=== PATIENT | male | born 1985 | race Two or more races ===

== ENCOUNTER 2022-02-02 19:16 | Emergency (ER) | payer BC ==
[2022-02-02] MEDS ORDERED: PENICILLIN V POTASSIUM 250 MG TAB PO STA (21:04)
--- NOTE | 2022-02-02 21:09 | ED ---
ENT HPI - General Chief complaint: Dental/Oral Stated complaint: Tooth Pain Time Seen by Provider: 02/02/22 20:55 Source: patient, RN notes reviewed Mode of arrival: ambulatory - History of Present Illness Initial comments: This is a pleasant 36-year-old male who presents complaining of a dental abscess in his right upper molar area which developed last night. Patient states she is getting some drainage from the area. He denies any fever or chills. No difficulty swallowing. No sore throat. No significant facial pain. No neck pain. No headache, no fever or chills, no changes in vision or hearing, no sore throat or difficulty with speech, no neck pain, no chest pain or shortness of breath, no abdominal pain, no nausea or vomiting, no changes in urination or bowel movements, no numbness or tingling, no extremity pain, no skin rashes or lesions. MD complaint: tooth pain - Related Data Home Medications Medication Instructions Recorded Confirmed Ibuprofen [Motrin] 600 mg PO Q8HR PRN 02/02/22 02/02/22 Previous Rx's Medication Instructions Recorded Penicillin V Potassium [Pen Vee K] 500 mg PO QID #40 tablet 02/02/22 Allergies Allergy/AdvReac Type Severity Reaction Status Date / Time No Known Allergies Allergy Verified 02/02/22 21:10 Review of Systems ROS Statement: Those systems with pertinent positive or pertinent negative responses have been documented in the HPI. ROS Other: All systems not noted in ROS Statement are negative. Past Medical History Past Medical History: No Reported History History of Any Multi-Drug Resistant Organisms: None Reported Past Surgical History: No Surgical Hx Reported Past Psychological History: No Psychological Hx Reported Smoking Status: Never smoker Past Alcohol Use History: Rare Past Drug Use History: None Reported General Exam - General Exam Comments Initial Comments: Well-developed, well-nourished 36-year-old male in no significant distress. General appearance: alert, in no apparent distress Head exam: Present: atraumatic, normocephalic, normal inspection Eye exam: Present: normal appearance, EOMI ENT exam: Present: normal oropharynx, mucous membranes moist, TM's normal bilaterally, normal external ear exam. Absent: mucous membranes dry Expanded Mouth exam: Absent: drooling, trismus, muffled voice, tongue normal, tongue elevation, laceration Teeth exam: Present: dental tenderness # (4), other (Patient has evidence of a draining dental abscess with gingival erythema adjacent to tooth #4. No evidence of deep space tissue infection. No airway issues) Throat exam: normal inspection. negative: tonsillar erythema, tonsillomegaly, tonsillar exudate, R peritonsillar mass, L peritonsillar mass Neck exam: Present: normal inspection, full ROM. Absent: tenderness, meningismus, lymphadenopathy, thyromegaly Course Vital Signs 02/02/22 19:29 Temperature 99.1 F Pulse Rate 87 Respiratory 18 Rate Blood Pressure 126/84 O2 Sat by Pulse 96 Oximetry Medical Decision Making - Medical Decision Making Patient presents with isolated dental pain. Does not appear to be systemically ill. Patient be treated Pen-Vee K 500 mg 4 times a day. First dose given here. Patient given follow-up information for a dental clinic. Patient states she has also seen [facility] in the past. Patient is a nonsmoker. Counseled on medications. Counseled on treatment plan. All questions answered. Also given a follow-up with a primary care physician if needed. Patient was told to return to the ER for any signs or symptoms worsen. Told to return immediately if any other problems arise. All questions answered. Treatment plan discussed. Patient in agreement Every effort has been made to ensure accuracy of this dictation. However, due to the limitations of electronic medical records and dictation devices, errors in charting still occur. Disposition Clinical Impression: Dental abscess Disposition: HOME SELF-CARE Condition: Stable Instructions (If sedation given, give patient instructions): Dental Abscess (ED) Additional Instructions: Follow-up with your regular physician as directed. Return to the ER immediately if any symptoms worsen, new symptoms arise, or any other problems develop. Make an appointment with the dentist as soon as possible. You can try the dental clinic below or her own dentist for follow-up. [facility] [address] [place], [place] [address] [address] I have provided the name of a primary care physician if he needs to establish care with somebody. Prescriptions: Penicillin V Potassium [Pen Vee K] 500 mg PO QID #40 tablet Is patient prescribed a controlled substance at d/c from ED?: No Referrals: Casimiro Tomlin [STAFF PHYSICIAN] - 1-2 days Time of Disposition: 21:08
[2022-02-02 21:18] VITALS: BP 154/89; PULSE 94; RESP 16; TEMP 98.9
== END 2022-02-02 21:25 | disposition home or self-care (01) ==
LOC: EC 19:16
DX: K04.7 Periapical abscess without sinus (principal)
CPT/HCPCS: 99282